=== PATIENT | male | born 1975 | race Caucasian/White ===

== ENCOUNTER → 2017-05-15 03:08 | Emergency (ER) | payer OTHER ==
[~2017-05-15 03:08] MED LIST: Iohexol 300* (CONTRAST) 10 ML SDV IV ONE; Morphine INJ* 4 MG/ML 1 ML SYRINGE IV ONE; NS 0.9% 1000 ML* 1,000 ML IV ONE; Ondansetron INJ* 2 MG/ML VIAL IV ONE; Pantoprazole IV* 40 MG IV ONE
[2017-05-15 04:18] LABS: Albumin 4.5 g/dL (3.2-5.2); BUN/Creatinine Ratio 17.9 (8-20); Calcium 9.2 mg/dL (8.6-10.3); EGFR African American 88.8 (>60); Total Bilirubin 0.4 mg/dL (0.2-1.0); Total Protein 7.5 g/dL (6.4-8.9)
[2017-05-15 04:30] LABS: Hematocrit 47 % (42-52); Hemoglobin 15.7 g/dl (14.0-18.0); Mean Corpuscular HGB Conc 33 g/dl (31-36); Mean Corpuscular Hemoglobin 30 pg (27-31); Mean Corpuscular Volume 91 fL (80-94); Mean Platelet Volume 9 um3 (7.4-10.4); Red Blood Count 5.19 10^6/ul (4.0-5.4); Red Cell Distribution Width 13 % (10.5-15); White Blood Count 12.4 10^3/ul (3.5-10.8)
[2017-05-15 04:35] LABS: Potassium 4.2 mmol/L (3.5-5.0)
[2017-05-15 06:35] LABS: Urine Bilirubin Negative (Negative); Urine Glucose Negative (Negative); Urine Nitrite Negative (Negative)
--- NOTE | 2017-05-15 06:46 | ED ---
Zach Oneal Alfonso, scribed for Jason Porras on 05/15/17 at 0349 . Abdominal Pain/Male - HPI Summary HPI Summary: This patient is a 41 year old M presenting to [facility] accompanied by and baby with a chief complaint of sharp epigastric abdominal pain since four hours ago. Pt rates the pain 8/10 in severity. Symptoms aggravated and alleviated by nothing. Pt reports nausea, vomiting (3x), and chills. Pt denies diarrhea, ETOH use, and substance use. reports patient was taking fat burner pills. - History of Current Complaint Chief Complaint: EDAbdPain Stated Complaint: ABD PAIN Time Seen by Provider: 05/15/17 03:30 Hx Obtained From: Patient Timing: Constant Severity Initially: Moderate Severity Currently: Moderate Pain Intensity: 8 Pain Scale Used: 0-10 Numeric Location: Epigastric Character: Sharp Aggravating Factor(s): Nothing Alleviating Factor(s): Nothing Associated Signs And Symptoms: Positive: Other - Pt reports nausea, vomiting (3x ), and chills. Pt denies diarrhea, ETOH use, and substance use. - Allergies/Home Medications Allergies/Adverse Reactions: Allergies Allergy/AdvReac Type Severity Reaction Status Date / Time No Known Allergies Allergy Verified 05/15/17 04:10 PMH/Surg Hx/FS Hx/Imm Hx Opthamlomology History: Denies: Hx Legally Blind EENT History: Denies: Hx Deafness Infectious Disease History: Yes Infectious Disease History: Denies: Traveled Outside the [place] in Last 30 Days - Family History Known Family History: Positive: Cardiac Disease - Social History Lives: With Family Alcohol Use: None Hx Substance Use: No Hx Tobacco Use: No Review of Systems Positive: Chills Positive: Abdominal Pain, Vomiting, Nausea. Negative: Diarrhea Neurological: Other - Negative ETOH use and substance use. All Other Systems Reviewed And Are Negative: Yes Physical Exam Triage Information Reviewed: Yes Vital Signs On Initial Exam: Initial Vitals Temp Pulse Resp BP Pulse Ox 96.6 F 46 16 129/90 100 05/15/17 03:13 05/15/17 03:13 05/15/17 03:13 05/15/17 03:13 05/15/17 03:13 Vital Signs Reviewed: Yes Appearance: Positive: Well-Appearing, No Pain Distress Skin: Positive: Warm, Skin Color Reflects Adequate Perfusion, Dry Head/Face: Positive: Normal Head/Face Inspection Eyes: Positive: EOMI, LUISA ENT: Positive: Normal ENT inspection Neck: Positive: Supple, Nontender Respiratory/Lung Sounds: Positive: Clear to Auscultation, Breath Sounds Present Cardiovascular: Positive: Pulses are Symmetrical in both Upper and Lower Extremities, Bradycardia Abdomen Description: Positive: Soft, Other: - LLQ and epigastric tenderness. Bowel Sounds: Positive: Present Musculoskeletal: Positive: Normal, Strength/ROM Intact Neurological: Positive: Normal, Sensory/Motor Intact, Alert, Oriented to Person Place, Time Diagnostics - Vital Signs Vital Signs Temp Pulse Resp BP Pulse Ox 05/15/17 03:13 96.6 F 46 16 129/90 100 - Laboratory Result Diagrams: 05/15/17 03:27 05/15/17 03:27 Lab Statement: Any lab studies that have been ordered have been reviewed, and results considered in the medical decision making process. - Radiology CXR Radiology Interpretation Completed By: ED Physician - negative exam - CT A/P CT Interpretation Completed By: Radiologist - Negative exam. - EKG 0317 Cardiac Rate: Bradycardia - BPM 46 EKG Rhythm: Sinus Bradycardia 0321 Cardiac Rate: Bradycardia - BPM 46 EKG Rhythm: Sinus Bradycardia Abdominal Pain Fem Course/Dx - Course Assessment/Plan: 41 year old M presenting to [facility] accompanied by and baby with a chief complaint of sharp epigastric abdominal pain since four hours ago. Pt reports nausea, vomiting (3x), and chills. Pt denies diarrhea, ETOH use, and substance use. CXR reveals a negative exam. CT A/P reveals a negative exam. An EKG reveals SB. US abdomen is pending at this time, see [facility]. Patient will be signed out to Dr. Marin who will follow up on US due to shift change. - Diagnoses Provider Diagnoses: Abdominal pain Discharge - Discharge Plan Condition: Stable Disposition: OTHER Discharge Disposition Comment: Pt is signed out to Dr. Marin, pending disposition , awaiting US results. Patient Education Materials: Acute Abdominal Pain (ED) Referrals: Peggy Anderson MD [Primary Care Provider] - 3 Days The documentation as recorded by the Zach maher Alfonso accurately reflects the service I personally performed and the decisions made by , Jason Porras.
--- NOTE | 2017-05-15 08:42 | RAD ---
HISTORY: Epigastric pain COMPARISONS: Same day CT of the abdomen and pelvis TECHNIQUE: Multiple transverse and longitudinal ultrasound images were obtained of the right upper quadrant. FINDINGS: LIVER: The liver is normal in dimensions and echogenicity. Normal hepatic and portal venous blood flow is duplicated with color flow imaging. There is no gross intrahepatic biliary duct dilatation. GALLBLADDER AND EXTRAHEPATIC BILIARY DUCT: The gallbladder is normal in appearance without intraluminal stones or other soft tissue masses. There is no pericholecystic fluid or gallbladder wall thickening. The common bile duct measures a maximum diameter of 4 mm. PANCREAS: The portions of the pancreas not obscured by bowel gas are normal in appearance. RIGHT KIDNEY: The right kidney is normal in size, morphology and echogenicity. IMPRESSION: Normal ultrasound of the right upper quadrant.
--- NOTE | 2017-05-15 09:05 | RAD ---
CLINICAL HISTORY: Mid epigastric abdominal pain with emesis. COMPARISON: Same day ultrasound of the right upper quadrant that did not show any acute abnormalities. TECHNIQUE: Contrast enhanced CT examination of the abdomen and pelvis from the lung bases through the initial tuberosities. The patient received 100 mL Omnipaque 300 intravenously prior to imaging.The patient received oral contrast as well prior to imaging. FINDINGS: VISUALIZED LUNG BASES: The visualized lung bases are grossly clear. There is no pleural effusion. ABDOMEN AND PELVIS: The liver, spleen, pancreas and adrenal glands are grossly normal in appearance. The gallbladder is normal. The kidneys are normal in appearance without focal mass, calcification or signs of hydronephrosis. The oral contrast has progressed as far as the distal small bowel. This somewhat limits evaluation of the colon. At the right of midline upper abdomen there is the appearance of the distention of the mesenteric root depicted best on the coronal plane images (image 26 through 32). In this same vicinity there are scattered air-fluid levels in the small bowel lumen and at least one loop of small bowel is dilated up to 2.7 cm in diameter, top normal but not pathologically dilated. The patient's normal appendix is identified in the right lower quadrant with gas in the lumen (coronal image 42). There is no gross retroperitoneal or mesenteric lymphadenopathy. The pelvic viscera is normal in appearance. The abdominal aorta and iliac arteries are normal in course and diameter. A small fat-containing right-sided inguinal hernia is noted. There are no sinister bone lesions. IMPRESSION: Appearance of the small bowel and mesenteric root could be seen in infectious or inflammatory bowel disease in this otherwise nonacute CT of the abdomen and pelvis.
--- NOTE | 2017-05-15 09:38 | RAD ---
INDICATION: Shortness of breath. COMPARISON: None TECHNIQUE: PA and lateral views of the chest were obtained. FINDINGS: The heart and mediastinum are normal in size and contour. The lungs are grossly clear. There is no evidence of large pleural effusion. Visualized bones are normal for the patient's age. There is no radiographic evidence of free air beneath the diaphragm IMPRESSION: No radiographic evidence of acute cardiopulmonary disease.
[2017-05-15 10:13] VITALS: BP 106/72
--- NOTE | 2017-05-15 18:30 | ED ---
Roberto Oneal Soohyun, scribed for Ben Marin MD on 05/15/17 at 0936 . Progress - Progress Note Progress Note: Signed out at shift change. CT imaging results, US imaging results, and bloodwork were reviewed with pt. Pt is discharged with outpatient f/u with [facility], rx for Protonix. Pt is advised not to eat before going to bed. Pt is stable for discharge. - Results/Orders Results/Orders: US Gallbladder -- Normal Gallbladder US. Re-Evaluation - Re-Evaluation First Eval Re-Evaluation Time: 09:28 Comment: MD in room to update pt on US gallbladder imaging result and lab work. Course/Dx - Diagnoses Provider Diagnoses: Abdominal pain, Gastritis, GERD (gastroesophageal reflux disease) The documentation as recorded by the Roberto maher Soohyun accurately reflects the service I personally performed and the decisions made by me, Ben Marin MD.
== END ==
LOC: ED 03:08
DX: K21.9 Gastro-esophageal reflux disease without esophagitis (principal); R10.9 Unspecified abdominal pain; K29.70 Gastritis, unspecified, without bleeding
CPT/HCPCS: 36415; 71020; 74177; 76705; 80053; 81003; 83605; 83690; 84484; 85025; 85610; 85730; 93005; 99282; J2270; J2405; Q9967

== ENCOUNTER 2018-01-04 22:49 | Emergency (ER) | payer OTHER ==
[2018-01-05] MEDS ORDERED: Ibuprofen TAB* 800 MG PO ONE (00:37)
[2018-01-05] MEDS ORDERED: Acetaminophen TAB* 325 MG PO ONE (00:38)
[2018-01-05] MEDS ORDERED: Oseltamivir CAP* 75 MG CAP PO ONE (01:17)
[2018-01-05 01:34] VITALS: BP 115/69
--- NOTE | 2018-01-20 02:01 | ED ---
Jennifer Oneal Rebecca, scribed for Peg Pandya MD on 01/05/18 at 0120 . HPI Febrile Illness - HPI Summary HPI Summary: Pt is a 42 y/o M who presents to ED c/o fever. Sx began 2 days ago with a maximum temperature being reported as 104 today. Last dose of Ibuprofen was at 2130. Sx aggravated and alleviated by nothing. Additionally c/o cough, throat pain and GARCIA. Pt has not been seen by a medical provider for this issue yet. Reports that his 2 y/o son recently got over the flu. - History of Current Complaint Chief Complaint: EDFever Time Seen by Provider: 01/05/18 00:17 Hx Obtained From: Patient Onset/Duration: Started Days Ago - 2 days, Still Present Temperature: 104 F Current Severity: Moderate Pain Intensity: 7 Pain Scale Used: 0-10 Numeric Aggravating Factors: Nothing Alleviating Factors: Nothing Associated Signs and Symptoms: Cough, Headache, Sore Throat - Allergy/Home Medications Allergies/Adverse Reactions: Allergies Allergy/AdvReac Type Severity Reaction Status Date / Time No Known Allergies Allergy Verified 01/04/18 22:58 PMH/Surg Hx/FS Hx/Imm Hx Endocrine/Hematology History: Denies: Hx Diabetes Cardiovascular History: Denies: Hx Hypertension History: Denies: Hx Dialysis, Hx Renal Disease Sensory History: Denies: Hx Legally Blind, Hx Deafness Opthamlomology History: Denies: Hx Legally Blind - Surgical History Surgery Procedure, Year, and Place: eye - Immunization History Date of Tetanus Vaccine: utd Date of Influenza Vaccine: 11/03 Infectious Disease History: No Infectious Disease History: Denies: Traveled Outside the [place] in Last 30 Days - Family History Known Family History: Positive: Cardiac Disease - Social History Alcohol Use: None Hx Substance Use: No Substance Use Type: Reports: None Hx Tobacco Use: No Smoking Status (MU): Never Smoked Tobacco Review of Systems Positive: Fever Positive: Sore Throat Positive: Cough Positive: Headache All Other Systems Reviewed And Are Negative: Yes Physical Exam - Summary Physical Exam Summary: VITAL SIGNS: Reviewed. GENERAL: ~Patient is a well-developed and nourished male who is lying comfortable in the stretcher. Patient is not in any acute respiratory distress. HEAD AND FACE: No signs of trauma. No ecchymosis, hematomas or skull depressions. No sinus tenderness. EYES: PERRLA, EOMI x 2, No injected conjunctiva, no nystagmus. EARS: Hearing grossly intact. Ear canals and tympanic membranes are within normal limits. MOUTH: Oropharynx within normal limits. NECK: Supple, trachea is midline, no adenopathy, no JVD, no carotid bruit, no c- spine tenderness, neck with full ROM. CHEST: Symmetric, no tenderness at palpation LUNGS: Clear to auscultation bilaterally. No wheezing or crackles. CVS: Regular rate and rhythm, S1 and S2 present, no murmurs or gallops appreciated. ABDOMEN: Soft, non-tender. No signs of distention. No rebound no guarding, and no masses palpated. Bowel sounds are normal. EXTREMITIES: FROM in all major joints, no edema, no cyanosis or clubbing. NEURO: Alert and oriented x 3. No acute neurological deficits. Speech is normal and follows commands. SKIN: Dry and warm Triage Information Reviewed: Yes Vital Signs On Initial Exam: Initial Vitals Temp Pulse Resp BP Pulse Ox 101.3 F 106 16 122/74 94 01/04/18 22:50 01/04/18 22:50 01/04/18 22:50 01/04/18 22:50 01/04/18 22:50 Vital Signs Reviewed: Yes Diagnostics - Vital Signs Vital Signs Temp Pulse Resp BP Pulse Ox 01/04/18 22:50 101.3 F 106 16 122/74 94 - Laboratory Lab Statement: Any lab studies that have been ordered have been reviewed, and results considered in the medical decision making process. Re-Evaluation - Re-Evaluation First Eval Re-Evaluation Time: 01:21 Comment: Discussed results and D/C plan with the pt. Course/Dx - Course Assessment/Plan: Pt is a 42 y/o M who presents to ED c/o fever. Sx began 2 days ago with a maximum temperature being reported as 104 today. Last dose of Ibuprofen was at 2130. Additionally c/o cough, throat pain and GARCIA. Pt has not been seen by a medical provider for this issue yet. Reports that his 2 y/o son recently got over the flu. Influenza A negative, influenza B positive. Pt will be D/C to home with Dx of influenza with Rx for Motrin and tamiflu. He understands and agrees. - Diagnoses Provider Diagnoses: Influenza Discharge - Sign-Out/Discharge Documenting (check all that apply): Discharge - Discharge Plan Condition: Stable Disposition: HOME Prescriptions: Ibuprofen TAB* [Motrin TAB* 800 MG] 800 mg PO Q6H PRN #30 tab PRN Reason: Fever/Pain Oseltamivir CAP* [Tamiflu CAP*] 75 mg PO BID #10 cap Patient Education Materials: Influenza (ED) Forms: *Work Release Referrals: Peggy Anderson MD [Primary Care Provider] - 3 Days Additional Instructions: RETURN TO EMERGENCY DEPARTMENT FOR ANY NEW OR WORSENING SYMPTOMS The documentation as recorded by the Jennifer maher Rebecca accurately reflects the service I personally performed and the decisions made by Ya snider Abdul, MD.
== END 2018-01-05 01:33 | disposition home or self-care (01) ==
LOC: ED 22:49
DX: J11.1 Influenza due to unidentified influenza virus with other respiratory manifestations (principal); R50.9 Fever, unspecified; R05 Cough; J02.9 Acute pharyngitis, unspecified; R51 Headache
CPT/HCPCS: 87502; 99282; A9270-GY